=== PATIENT | female | born 1935 | race Caucasian/White ===

== ENCOUNTER 2019-04-09 20:30 | Emergency (ER) | payer MEDICARE, OTHER ==
--- NOTE | 2019-04-09 20:52 | Emergency Department Record ---
History of Present Illness - General Chief Complaint: Abdominal Pain Stated Complaint: ABDOMINAL PAIN Time Seen by Provider: 04/09/19 20:43 Source: Patient - History of Present Illness Initial Comments: The patient states that she has had non-radiating epigastric abdominal pain for the past 24 hours. It began last night and was 4-5/10 severity, but tonight is has gradually increased to 8/10 severity. She denies belching, indigestion, shortness of breath or chest pain. She ate turkey, potatoes, pumpkin pie with cool whip tonight. She has similar symptoms some months ago when she ate salmon, which she now knows she cannot tolerate. MD Complaint: Abdominal pain (epigastric) - Related Data Home Medications Medication Instructions Recorded Confirmed Last Taken Atorvastatin Calcium 1 tab PO DAILY 04/09/19 04/09/19 Unknown Pantoprazole Sodium [Protonix] 1 tab PO DAILY 04/09/19 04/09/19 Unknown Allergies Allergy/AdvReac Type Severity Reaction Status Date / Time Sulfa (Sulfonamide Allergy Severe ALTERED Verified 04/09/19 20:57 Antibiotics) MENTAL STATUS meperidine [From Demerol] Allergy Unknown PT UNSURE Verified 04/09/19 20:57 OF REACTION Review of Systems Reviewed: No additional complaints except as noted below Constitutional: Reports: As per HPI. Denies: Chills, Fever, Malaise, Night sweats, Weakness, Weight change Eyes: Reports: As per HPI. Denies: Eye discharge, Eye pain, Photophobia, Vision change ENT: Reports: As per HPI. Denies: Congestion, Dental pain, Ear pain, Epistaxis, Hearing loss, Throat pain Respiratory: Reports: As per HPI. Denies: Cough, Dyspnea, Hemoptysis, Stridor, Wheezes Cardiovascular: Reports: As per HPI. Denies: Arrhythmia, Chest pain, Dyspnea on exertion, Edema, Murmurs, Orthopnea, Palpitations, Paroxysmal nocturnal dyspnea, Rheumatic Fever, Syncope Endocrine: Reports: As per HPI. Denies: Fatigue, Heat or cold intolerance, Po lydipsia, Polyuria Gastrointestinal: Reports: As per HPI. Denies: Abdominal pain, Constipation, Diarrhea, Hematemesis, Hematochezia, Melena, Nausea, Vomiting Genitourinary: Reports: As per HPI. Denies: Abnormal menses, Discharge, Dyspareunia, Dysuria, Frequency, Hematuria, Incontinence, Retention, Urgency Musculoskeletal: Reports: As per HPI. Denies: Arthralgia, Back pain, Gout, Joint swelling, Myalgia, Neck pain Skin: Reports: As per HPI. Denies: Bruising, Change in color, Change in hair/na ils, Lesions, Pruritus, Rash Neurological: Reports: As per HPI. Denies: Abnormal gait, Confusion, Headache, Numbness, Paresthesias, Seizure, Tingling, Tremors, Vertigo, Weakness Psychiatric: Reports: As per HPI. Denies: Anxiety, Auditory hallucinations, Depression, Homicidal thoughts, Suicidal thoughts, Visual hallucinations Hematological/Lymphatic: Reports: As per HPI. Denies: Anemia, Blood Clots, Easy bleeding, Easy bruising, Swollen glands Physical Exam - General General Appearance: Alert, Oriented x3, Cooperative, No acute distress - Head Head exam: Normal inspection - Eye Eye exam: Normal appearance, PERRL, EOMI. negative: Conjunctival injection, Nystagmus Pupils: Normal accommodation - ENT ENT exam: Normal exam, Mucous membranes moist, Normal external ear exam, Normal orophraynx, TM's normal bilaterally Ear exam: Normal external inspection. negative: External canal tenderness Nasal Exam: Normal inspection. negative: Discharge, Sinus tenderness Mouth exam: Normal external inspection, Tongue normal Teeth exam: Normal inspection. negative: Dental caries Throat exam: Normal inspection. negative: Tonsillar erythema, Tonsillar exudate - Neck Neck exam: Normal inspection, Full ROM. negative: Lymphadenopathy, Meningismus, Tenderness - Respiratory Respiratory exam: Normal lung sounds bilaterally. negative: Respiratory distress - Cardiovascular Cardiovascular Exam: Regular rate, Normal rhythm, Normal heart sounds - GI/Abdominal GI/Abdominal exam: Soft, Normal bowel sounds, Tenderness (epigastric tenderness on palpation). negative: Distended, Guarding - Rectal Rectal exam: Deferred - exam: Deferred - Extremities Extremities exam: Normal inspection, Full ROM, Normal capillary refill. negative: Tenderness - Back Back exam: Reports: Normal inspection, Full ROM. Denies: Muscle spasm, Rash noted, Tenderness - Neurological Neurological exam: Alert, Normal gait, Oriented X3, Reflexes normal - Psychiatric Psychiatric exam: Normal affect, Normal mood - Skin Skin exam: Dry, Intact, Normal color, Warm Course Vital Signs 04/09/19 20:35 Temperature 97.6 F Pulse Rate [ 80 Pulse Ox Probe] Respiratory 20 Rate Blood Pressure 189/93 [Left Arm] Pulse Ox 95 - Reevaluation(s) Reevaluation #1: Patient states that her symptoms are completely gone after the GI cocktail 04/09/19 22:33 Reevaluation #2: Patient's results were discussed. she understands the need for her to obtain an out patient ultrasound of her GB through PCP or Dr. Atkinson. She agrees to a fat free diet, and will take cipro for the asymptomatic UTI she currently has. She was given two doses of GI cocktail for home in case symptoms recur. She is aware she may need to return to the EDept if she worsens, and she was instructed on what a fat free diet is. All questions answered, ready for discharge. 04/09/19 22:34 Medical Decision Making - Management Options MDM Management: Additional Work-up Planned (e.g. ADM/Transfer/OP Study) (Surgery Consult Dr. Atkinson. Out patient ultrasound to be scheduled by patient through PCP or Surgeon.) - Data Complexity MDM Data: Labs Ordered and/or Reviewed (troponin < 0.010; labs normal UA 4+ bacteria, 3-5 WBC, +N, +LE. ), EKG Ordered and/or Reviewed (EKG: NSR at 76, No acute abnormality, no prior for comparison.) - Lab Data Result diagrams: 04/09/19 21:00 04/09/19 21:00 - EKG Data -: EKG Interpreted by Vt EKG: No Acute Changes Disposition Disposition: Discharge Clinical Impression: Recurrent biliary colic UTI (urinary tract infection) Qualifiers: Urinary tract infection type: acute cystitis Hematuria presence: without hematuria Qualified Code(s): N30.00 - Acute cystitis without hematuria Disposition: Home, Self-Care Condition: (1) Good Instructions: Biliary Colic (ED), Urinary Tract Infection in Women (ED) Additional Instructions: Cipro twice daily for 10 days until gone. Fat free diet. Clear liquids and advance as tolerates. Dr[facility] for cholecystitis/biliary colic. Call Dr. Soto PCP for out patient ultrasound scheduling in a.m. Return if your symptoms recur prior to out patient apointments. Referrals: Nate Atkinson [DOCTOR OF OSTEOPATH] - Quality - Quality Measures Quality Measures: N/A - Blood Pressure Screening Does Patient Have Any of the Following: No Blood Pressure Classification: Hypertensive Reading Systolic Measurement: 161 Diastolic Measurement: 79 Screening for High Blood Pressure: Patient Exclusion, Hx of HTN [[id number]]
[2019-04-09] MEDS ORDERED: MAGNESIUM HYDROXIDE/AL HYDROX 30 ML, LIDOCAINE VISC 2% 15ML 15 ML PO ONE ×4 (20:54→22:25)
[2019-04-09 21:08] LABS: ABSOLUTE NEUTROPHIL COUNT 4.89; BASO % 0.3 % (0-6); EOS % 2.4 % (0-6); HEMATOCRIT 39.3 % (35.0-47.0); HEMOGLOBIN 12.4 gm/dl (11.6-16.0); LYMPH % 19.5 % (16-45); MEAN CELL VOLUME 91.2 fl (81-97); MEAN CORPUSCULAR HEMOGLOBIN 28.8 pg (27-33); MEAN CORPUSCULAR HGB CONC 31.6 g/dl (32-36); MEAN PLATELET VOLUME 8.9 fl (7.4-10.4); MONO % 8.8 % (0-9); PLATELET COUNT 381 K/uL (130-400); RED BLOOD COUNT 4.31 M/uL (3.80-5.40); RED CELL DISTRIBUTION WIDTH 14.2 % (11.5-14.5); WHITE BLOOD COUNT W/O DIFF 7.1 K/uL (4.2-12.2)
[2019-04-09 21:21] LABS: BLOOD UREA NITROGEN 10 mg/dL (8-23)
[2019-04-09 21:22] LABS: CREATININE 0.8 mg/dL (0.5-0.9); EST GLOMERULAR FILTRATION RATE > 60 mL/min; LIPASE 54 U/L (13-60); TOTAL PROTEIN 7.2 g/dL (6.6-8.7)
[2019-04-09 21:24] LABS: GLUCOSE,RANDOM 118 mg/dL (74-109)
[2019-04-09 21:27] LABS: ALB/GLOB RATIO 1.7 (1.1-1.8); ALBUMIN 4.5 g/dL (4.0-5.0); ALKALINE PHOSPHATASE 69 U/L (35-104); ALT/SGPT 15 U/L (<33); AST/SGOT 19 U/L (10.0-35.0)
[2019-04-09 22:12] LABS: URINE APPEARANCE SL CLOUDY; URINE BILIRUBIN NEGATIVE (NEGATIVE); URINE BLOOD TRACE-I (NEGATIVE); URINE COLOR YELLOW; URINE GLUCOSE (UA) NEGATIVE (NEGATIVE); URINE KETONE NEGATIVE (NEGATIVE); URINE LEUKOCYTE ESTERASE SMALL (NEGATIVE); URINE NITRITE POSITIVE (NEGATIVE); URINE PROTEIN NEGATIVE (NEGATIVE); URINE UROBILINOGEN 0.2 E.U./dL (0.20 - 1.00)
--- NOTE | 2019-04-09 22:13 | CT SCAN REPORT ---
EXAMINATION: CT Abdomen and Pelvis with IV Contrast EXAM DATE: 04/09/2019 9:55 PM TECHNIQUE: CT imaging of the abdomen and pelvis was performed with intravenous contrast. Coronal and sagittal images were reconstructed. IV Contrast: The amount and type of contrast are recorded in the medical record. INDICATION: epigastric AP COMPARISON: None ENCOUNTER: Not applicable CT ABDOMEN AND PELVIS FINDINGS: Lung Bases: Mild subpleural reticulation otherwise clear. Hepatobiliary: The liver has a normal size with a smooth surface. The hepatic and portal veins appear patent. Gallbladder is distended with no calcified gallstones. There is questionable minimal gallbl adder wall edema but no adjacent fat stranding. Pancreas: The pancreas is normal. Spleen: The spleen is not enlarged. Adrenals: The adrenal glands are normal. Kidneys, Ureters, & Bladder: Both kidneys have a normal size and there is no hydronephrosis. Multiple unilocular cysts bilaterally within the kidneys largest on the right located in the interpolar regio n measuring 2.8 cm. Largest on the left is located in the interpolar region measuring 4.4 cm. Both ur eters have a normal caliber and the urinary bladder is unremarkable. Gastrointestinal: The stomach and small bowel are normal with no obstruction or inflammation. Normal appendix. Extensive fecal material in the cecum and ascending colon consistent with constipation. Mi ld sigmoid colon diverticulosis without evidence of acute diverticulitis. Reproductive Organs: Uterus is absent Lymphatic System: There is no adenopathy within the abdomen or pelvis. Vasculature: Normal caliber abdominal aorta. Mild calcification Peritoneum: No free fluid, free air, or inflammation Abdominal Wall & Musculoskeletal: No suspicious bone lesions. Small fat-containing inguinal hernias. IMPRESSION: 1. Gallbladder is distended. No calcified gallstones. There may be minimal gallbladder wall edema but no adjacent inflammatory fat stranding. 2. Normal appendix. 3. Constipation. No intestinal obstruction. 4. Small fat-containing inguinal hernias. 5. Mild sigmoid colon diverticulosis. Dictated by: Hamlet Fulton MD on 04/09/2019 10:07 PM. .
[2019-04-09 22:20] LABS: URINE BACTERIA 4+; URINE EPITHELIAL CELLS 0 - 2 (FEW); URINE RBC 0 - 2 (NONE SEEN)
[2019-04-09] MEDS ORDERED: CIPROFLOXACIN HCL 500 MG TABLET PO ONE (22:25)
== END 2019-04-09 22:58 | disposition home or self-care (01) ==
LOC: ER 20:30
DX: K80.50 Calculus of bile duct without cholangitis or cholecystitis without obstruction (principal); N30.00 Acute cystitis without hematuria; I10 Essential (primary) hypertension
CPT/HCPCS: 74177; 80053; 81001; 83690; 84484; 85025; 93005; 93010; 99284